=== PATIENT | female | born 1985 | race African-American/Black ===

== ENCOUNTER 2017-12-12 22:21 | Emergency (ER) | payer BC, OTHER ==
[~2017-12-12] VITALS: Ht 157.5 cm; Wt 109.0 kg
[~2017-12-12 22:21] MED LIST: Z.0.NO CURRENT MEDS
[2017-12-12 22:26] VITALS: BP 168/80; PULSE 68; RESP 18; TEMP 98.3; O2SAT 99
[2017-12-12] MEDS ORDERED: IBUP-232 PO (23:12)
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
[2017-12-12] MEDS ORDERED: IBUPROFEN 800 MG TAB PO ONE (23:15)
[2017-12-12 23:28] VITALS: BP 146/78; PULSE 66; RESP 18; O2SAT 99
== END 2017-12-12 23:35 | disposition home or self-care (01) ==
LOC: PHED 22:21
DX: S40.011A Contusion of right shoulder, initial encounter (principal); W22.8XXA Striking against or struck by other objects, initial encounter
CPT/HCPCS: 99283

== ENCOUNTER 2018-02-02 12:19 | Emergency (ER) | payer OTHER ==
[~2018-02-02] VITALS: Ht 157.5 cm; Wt 107.4 kg
[~2018-02-02 12:19] MED LIST changes: +IBUP-232 PO
[2018-02-02 12:27] VITALS: BP 129/59; PULSE 75; RESP 16; TEMP 98.9; O2SAT 100
[2018-02-02] MEDS ORDERED: RESP: ALBUTEROL 2.5 MG/3 ML NEB (SCH) INH ONE (13:45)
[2018-02-02] MEDS ORDERED: ALBUAER3 INH (14:05)
[2018-02-02] MEDS ORDERED: BENZ100 PO (14:05)
[2018-02-02] MEDS ORDERED: AZIT250T3 PO (14:05)
[2018-02-02] MEDS ORDERED: PRED20 PO (14:05)
--- NOTE | 2018-02-02 14:06 | PD ---
HPI Chief Complaint: Cold / Flu Symptoms Time Seen by Provider: 13:09 Travel History International Travel<30 days: No Contact w/Intl Traveler<30days: No Traveled to known affect area: No History of Present Illness HPI 32-year-old female here with productive cough and wheezing 1 week. Subjective fevers. Symptom severity is moderate. No aggravating or alleviating factors. No sick contacts or foreign travel. Reporting yellow sputum. History of asthma not currently using albuterol inhaler. L[facility] Past Medical History Asthma: Yes Blood Disorders: No Cardiovascular Problems: No Diminished Hearing: No Endocrine: No Gastrointestinal Disorders: Yes (ABD TUMOR) Genitourinary: No Hypertension: No Immune Disorder: No Musculoskeletal: No Neurologic: No Psychiatric: No Reproductive: No Respiratory: Yes Tetanus Vaccination: Unknown Influenza Vaccination: No ?: Not LMP: JUST FINISHED : 0 Ovarian Cysts: Yes Past Surgical History Abdominal Surgery: Yes (TUMOR REMOVAL) AICD: No Arteriovenous Shunt: No Cardiac Surgery: No Ear Surgery: No Endocrine Surgery: No Eye Surgery: No Genitourinary Surgery: No Gynecologic Surgery: No Hysterectomy: Yes (partial) Insulin Pump: No Joint Replacement: No Neurologic Surgery: No Oral Surgery: No Pacemaker: No Thoracic Surgery: No Other Surgery: No Social History Alcohol Use: No Tobacco Use: No Substance Use: No Allergies-Medications (Allergen,Severity, Reaction): Coded Allergies: acetaminophen (Unverified Adverse Reaction, Severe, EMESIS, 02/02/18) morphine (Unverified Adverse Reaction, Severe, EMESIS, 02/02/18) oxycodone (Unverified Adverse Reaction, Severe, EMESIS, 02/02/18) Reported Meds & Prescriptions Reported Meds & Active Scripts Active Prednisone 20 Mg Tab 40 Mg PO DAILY Take 40 mg (2 tablets) daily for 5 days Azithromycin 250 Mg Tab 250 Mg PO DIRECTED Take 2 tabs (500 mg) on day 1 then 1 tab daily x 4 days. Review of Systems Except as stated in HPI: all other systems reviewed are Neg General / Constitutional: Positive: Fever Eyes: No: Visual changes HENT: No: Headaches Cardiovascular: No: Chest Pain or Discomfort Respiratory: Positive: Cough, Wheezing Gastrointestinal: No: Abdominal Pain Genitourinary: No: Dysuria Physical Exam Narrative GENERAL: Alert and well-appearing 32-year-old female. SKIN: Warm and dry. HEAD: Normocephalic. EYES: No injection or drainage. NECK: Supple, trachea midline. CARDIOVASCULAR: Regular rate and rhythm without murmurs, gallops, or rubs. RESPIRATORY: Breath sounds equal bilaterally. No accessory muscle use. Faint expiratory wheezes. Rhonchorous cough. GASTROINTESTINAL: Abdomen soft, non-tender, nondistended. MUSCULOSKELETAL: No cyanosis, or edema. BACK: Nontender without obvious deformity. No CVA tenderness. Data Data Last Documented VS Vital Signs Date Time Temp Pulse Resp B/P (MAP) Pulse Ox O2 Delivery O2 Flow Rate FiO2 02/02/18 12:27 98.9 75 16 129/59 (82) 100 Orders Orders Albuterol Neb (Albuterol Neb) (02/02/18 13:45) Ed Discharge Order (02/02/18 14:06) [facility] Medical Decision Making Medical Screen Exam Complete: Yes Emergency Medical Condition: Yes Differential Diagnosis Bronchitis, pneumonia, asthma exacerbation Narrative Course 32-year-old female here with productive cough and wheezing 1 week. She is nontoxic appearing. She had faint expiratory wheezes and rhonchorous cough on exam. She was given albuterol treatment and reports symptom improvement. She is stable and ready for discharge. Diagnosis Primary Impression: Bronchitis Referrals: Primary Care Physician Departure Forms: Tests/Procedures, Work Release Enter return to work date: February 03, 2018 Additional Instructions: Medication as directed. Follow-up with your primary doctor. Return if you have new or worsening symptoms. Scripts Benzonatate (Tessalon Perles) 100 Mg Cap 200 MG PO TID Y for COUGH, #12 CAP 0 Refills Prov: Cristiane Norman [employer] 02/02/18 Albuterol 8.5 GM Inh (Proair Hfa 8.5 GM Inh) 90 Mcg/Act Aer 2 PUFF INH Q4-6H Y for SHORTNESS OF BREATH, #1 INHALER 0 Refills 108 mcg/actuation Prov: Cristiane Norman [employer] 02/02/18 Prednisone (Prednisone) 20 Mg Tab 40 MG PO DAILY, #10 TAB 0 Refills Take 40 mg (2 tablets) daily for 5 days Prov: Cristiane Norman [employer]ENTICE 02/02/18 Azithromycin (Azithromycin) 250 Mg Tab 250 MG PO DIRECTED for Infection, #6 TAB 0 Refills Take 2 tabs (500 mg) on day 1 then 1 tab daily x 4 days. Prov: Cristiane Norman 02/02/18 Disposition: 01 DISCHARGE HOME Condition: Stable Cristiane Norman Feb 02, 2018 14:06
== END 2018-02-02 14:33 | disposition home or self-care (01) ==
LOC: PHED 12:19 → PHEFT 14:33
DX: J45.909 Unspecified asthma, uncomplicated (principal)
CPT/HCPCS: 94664; 99283; J7613

== ENCOUNTER 2018-02-24 13:10 | Emergency (ER) | payer OTHER ==
[~2018-02-24] VITALS: Ht 157.5 cm; Wt 109.0 kg
[~2018-02-24 13:10] MED LIST changes: +ALBUAER3 INH; +AZIT250T3 PO; +BENZ100 PO; -IBUP-232 PO; +PRED20 PO; -Z.0.NO CURRENT MEDS
[2018-02-24 13:16] VITALS: BP 143/87; PULSE 80; RESP 16; TEMP 98.4; O2SAT 98
--- NOTE | 2018-02-24 13:47 | PD ---
HPI Chief Complaint: Musculoskeletal Complaint Time Seen by Provider: 13:20 Travel History International Travel<30 days: No Contact w/Intl Traveler<30days: No Traveled to known affect area: No History of Present Illness HPI 32-year-old female presents emergency department for evaluation of right ankle pain after near fall yesterday. Patient states that she was walking into her house when she slid and slightly rolled her right ankle. Says that she has developed pain in her heel, bony prominence of the ankle, midfoot, and Achilles area. Says that the pain is all over however, aching and mild to moderate in severity. She is taken Motrin for her pain with some relief. Denies numbness or tingling. Decreased range of motion of her ankle because of the pain. Patient is ambulatory into the emergency department today. PFSH Past Medical History Asthma: Yes Blood Disorders: No Cardiovascular Problems: No Diminished Hearing: No Endocrine: No Gastrointestinal Disorders: Yes (ABD TUMOR) Genitourinary: No Hypertension: No Immune Disorder: No Musculoskeletal: No Neurologic: No Psychiatric: No Reproductive: No Respiratory: Yes Tetanus Vaccination: Unknown Influenza Vaccination: No ?: Not LMP: 01/28/18 : 0 Ovarian Cysts: Yes (removal of right ovary) Tubal Ligation: Yes (right tubal) Past Surgical History Abdominal Surgery: Yes (TUMOR REMOVAL) AICD: No Arteriovenous Shunt: No Cardiac Surgery: No Ear Surgery: No Endocrine Surgery: No Eye Surgery: No Genitourinary Surgery: No Gynecologic Surgery: Yes (removal of fibroids) Hysterectomy: Yes (partial) Insulin Pump: No Joint Replacement: No Neurologic Surgery: No Oral Surgery: No Pacemaker: No Thoracic Surgery: No Other Surgery: No Social History Alcohol Use: Yes (occas. wine) Tobacco Use: No (quit approx 15 years ago states only smoked for 2-3 months- cigs) Substance Use: No Allergies-Medications (Allergen,Severity, Reaction): Coded Allergies: acetaminophen (Unverified Adverse Reaction, Severe, EMESIS, 02/24/18) morphine (Unverified Adverse Reaction, Severe, EMESIS, 02/24/18) oxycodone (Unverified Adverse Reaction, Severe, EMESIS, 02/24/18) Reported Meds & Prescriptions Reported Meds & Active Scripts Active Proair Hfa 8.5 GM Inh (Albuterol Sulfate) 90 Mcg/Act Aer 2 Puff INH Q4-6H PRN 108 mcg/actuation Review of Systems Except as stated in HPI: all other systems reviewed are Neg Physical Exam Narrative GENERAL: Well-nourished, well-developed patient, in NAD SKIN: Focused skin assessment warm/dry. No rashes or lesions. HEAD: Normocephalic. Atraumatic. EYES: No scleral icterus. No injection or drainage. PERRLA, EOMI THROAT: No pharyngeal injection, exudates, or tonsillar hypertrophy. Airway is patent. NECK: Supple, trachea midline. No JVD or lymphadenopathy. No meningismus. CARDIOVASCULAR: Regular rate and rhythm without murmurs, gallops, or rubs. RESPIRATORY: Breath sounds equal bilaterally. No accessory muscle use. No wheezes, rales, or rhonchi MUSCULOSKELETAL: No cyanosis, or edema. Right ankle and foot-mild edema when compared to the left. Tenderness palpation of the medial malleolus, forefoot, heel, and Achilles. Neurovascularly intact. Limited range of motion of the ankle secondary to pain. No laxity of the joint or foot noted. Data Data Last Documented VS Vital Signs Date Time Temp Pulse Resp B/P (MAP) Pulse Ox O2 Delivery O2 Flow Rate FiO2 02/24/18 13:16 98.4 80 16 143/87 (105) 98 Orders Orders Foot, Complete ([id number]) (02/24/18 ) Ankle, Complete ([id number]) (02/24/18 ) [facility] Medical Decision Making Medical Screen Exam Complete: Yes Emergency Medical Condition: Yes Differential Diagnosis Right ankle, right foot contusion, bursitis, cellulitis, fracture, osteonecrosis , avascular necrosis, sprain, strain Narrative Course 32-year-old female presents emergency department complaint of right ankle and foot pain that occurred yesterday after slip and near fall. The exam findings concerning for tenderness over bony prominences. Ordered x- rays to rule out acute process. There is no acute process on x-rays today. She likely has a ankle sprain and foot contusion. Patient will be placed in an ankle stirrup. She is advised to follow-up with a primary care physician. Consider orthopedics or improvement manager if her symptoms persist or worsen. Advised that it may take weeks for her pain to resolve. Diagnosis Primary Impression: Foot contusion Qualified Codes: S90.31XA - Contusion of right foot, initial encounter Additional Impression: Ankle sprain Qualified Codes: S93.401A - Sprain of unspecified ligament of right ankle, initial encounter Referrals: Orthopedist Primary Care Physician Departure Forms: Tests/Procedures, Work Release Enter return to work date: February 27, 2018 Additional Instructions: Consider follow-up with an orthopedic physician or improvement manager for further evaluation if you continue to have pain. Perform range of motion exercises of your ankle to reduce complications and stiffness of your joint. The advised that you may have pain for weeks after this incident. Use ice or heat for symptom relief. If no contraindications, you may use Tylenol or Motrin per package instructions for your pain. Elevate the joint above the heart to reduce swelling. You may use compression with Marcel wrap or similar to reduce swelling. If symptoms persist or worsen, return to the emergency department. Follow up with your primary care physician within 2 days. Disposition: 01 DISCHARGE HOME Condition: Stable Elise Jackman February 24, 2018 13:47
--- NOTE | 2018-02-24 14:17 | RADRPT ---
EXAM DATE: 02/24/2018 2:04 PM EDT AGE/SEX: 32 years / Female INDICATIONS: Right foot pain, slipped and rolled right foot and ankle. CLINICAL DATA: This is the patient's initial encounter. Patient reports that signs and symptoms have been present for 2 days and indicates a pain score of 8/10. MEDICAL/SURGICAL HISTORY: None. None. COMPARISON: No prior [facility] exams available for comparison. FINDINGS: Bony structures are intact and in normal alignment. Joints are intact without dislocation or significant arthropathy. Osseous density is normal. Soft tissues are unremarkable. No radiopaq ue foreign bodies seen. CONCLUSION: No acute bony findings Electronically signed by: Charli Palmer MD 02/24/2018 2:16 PM EDT
--- NOTE | 2018-02-24 14:17 | RADRPT ---
EXAM DATE: 02/24/2018 2:04 PM EDT AGE/SEX: 32 years / Female INDICATIONS: Right foot pain, slipped and rolled right foot and ankle. CLINICAL DATA: This is the patient's initial encounter. Patient reports that signs and symptoms have been present for 2 days and indicates a pain score of 8/10. MEDICAL/SURGICAL HISTORY: None. None. COMPARISON: No prior [facility] exams available for comparison. FINDINGS: Bony structures are intact and in normal alignment. Osseous density is normal. Soft tiss ues are unremarkable. No radiopaque foreign bodies seen. CONCLUSION: No acute bony findings Electronically signed by: Charli Palmer MD 02/24/2018 2:16 PM EDT
== END 2018-02-24 15:16 | disposition home or self-care (01) ==
LOC: PHEFT 13:10
DX: S90.31XA Contusion of right foot, initial encounter (principal); X50.1XXA Overexertion from prolonged static or awkward postures, initial encounter; J45.909 Unspecified asthma, uncomplicated
CPT/HCPCS: 73610; 73630; 99283; L1906